=== PATIENT | female | born 1970 | race Hispanic/Latino ===

== ENCOUNTER 2024-04-19 22:33 | Emergency (ER) | payer OTHER, SELFPAY ==
--- OUTSIDE RECORDS SUMMARY | 2024-04-19 22:45 | XMS REPORT | Continuity of Care Document ---
Author Name Unknown Address [address] [facility] [address] [place] [address] [facility] Address [address] [facility] [address] [place] [address] Care Team Providers Care Ordnance Mechanic Name Role Phone ELENA PICKENS Primary Care Physician Unav ailable FELICITAS LINK Attending Clinician Unavailabl e [facility]WalkInSchedul Attending Clinician Unavail able PORSCHE ISBELL Attending Clinician Unavailable Porsche Isbell PA-C Attending Clinician [phone] Sosa Bledsoe MD Attending Clinician [phone] SOSA BLEDSOE Attending Clinician Unavailable Doctor Unassigned, [place] Attending Clinician U shanelleailFelicitas Andrew MD Attending Clinician [phone] Robert Lockhart Attending Clinician [phone], [employer] Attending Clinician Belkis Warren PhD, Marly Mercado Attending Clinician Clinic, Neurology Continuity Attending Clinician Unavailable Radiology Attending Clinician Unavailable RADIOLOGY Attending Clinician Unavailable WILLIAM LARSON Attending Clinician Unavail able MOMO LUNDY Attending Clinician Unavailable Provider, [facility] Attending Clinician Un available Becky Farias Attending Clinician [phone] [facility]_WalkInSchedul Admitting Clinician Unavail able Payers Payer Name Policy Type Policy Number Effective Date Expirati on Date Source [facility] [id number] 2017 00:00:00 [facility] (O) [id number] 2022 00:00:00 Problems Condition Name Condition Details Condition Category Status Onset Date Resolution Date Last Treatment Date Treating Clinician Comments Source Gastroesop hageal reflux disease without esophagiti s Gastroesop hageal Reflux Disease without Esophagiti s Problem Active 2022-07 00:00: 00 [facility] Urge incontinen ce of urine Urge Incontinen ce of Urine Problem Active 2022-07 00:00: 00 [facility] Cerebrovas cular disease Cerebrovas cular Disease Problem Active 02-24 00:00: 00 [facility] Hyperlipid emia Hyperlipid emia Problem Active 08-14 00:00: 00 [facility] Rheumatoid arthritis Rheumatoid Arthritis Problem Active 08-14 00:00: 00 [facility] No known active problems No known active problems Disease [facility] Allergies, Adverse Reactions, Alerts Allergy Name Allergy Type Status Severity Reaction(s) Onset Date Inactive Date Treating Clinician Comments Source NO KNOWN ALLERGIE S Drug Class Active [facility] Social History Social Habit Start Date Stop Date Quantity Comments Source Alcohol intake 2022-12-13 00:00:00 2022-12-13 00:00:00 Current non-drinker of alcohol (finding) [facility] Exposure to SARS-CoV-2 (event) 2022-09-26 00:00:00 2022-10-06 11:52:00 Not sure [facility] Tobacco use and exposure 2022-06-18 00:00:00 2022-06-18 00:00:00 Smokeless tobacco non-user [facility] Sex Assigned At 1970 00:00:00 1970 00:00:00 [facility] Smoking Status Start Date Stop Date Source Never smoked tobacco [facility] Medications Ordered Medication Name Filled Medication Name Start Date Stop Date Current Medication? Ordering Clinician Indication Dosage Frequency Signature (SIG) Comments Components Source atorvastati n 20 mg tablet 3- 12:13: 33 10-06 00:00 :00 No 40mg Take 40 mg by mouth at bedtime. [facility] apixaban 5 mg tablet 10-06 12:13: 31 Yes 5mg Take 1 tablet by mouth 2 (two) times daily. [facility] atorvastati n 40 mg tablet 08-19 00:00: 00 Yes 40mg Take 1 tablet by mouth daily. [facility] fluticasone propionate 50 mcg/actuati on nasal spray 08-11 00:00: 00 10-06 00:00 :00 No [id number] 1{spray } Use 1 Newfane in each nostril 2 (two) times daily. [facility] fluticasone propionate 50 mcg/actuati on nasal spray 08-10 00:00: 00 08-11 00:00 :00 No [id number] 1{spray } Use 1 Newfane in each nostril 2 (two) times daily. [facility] iopamidol (ISOVUE 370-500 mL) injection 100 mL 2021-07 20:15: 00 06-24 19:29 :00 No [id number] 100mL 100 mL, Intravenou s, ONCE, 1 dose, On Wed06/24/22 at 1415, Routine [facility] atorvastati n 20 mg tablet 2021-07 12:04: 35 Yes 40mg Take 40 mg by mouth at bedtime. [facility] methotrexat e 2.5 mg tablet 2021-07 12:04: 35 Yes 7.5mg Take 7.5 mg by mouth weekly. [facility] atorvastati n 20 mg tablet 10-26 16:14: 32 Yes 20mg Take 20 mg by mouth at bedtime. [facility] apixaban (ELIQUIS) 5 mg tablet 10-26 16:14: 32 Yes 5mg Take 5 mg by mouth 2 (two) times daily. [facility] methotrexat e 2.5 mg tablet 10-26 16:14: 32 Yes 7.5mg Take 7.5 mg by mouth weekly. [facility] omeprazole 40 mg capsule 10-26 16:14: 32 Yes 40mg Take 40 mg by mouth daily. [facility] atorvastati n 20 mg tablet 10-26 11:14: 32 Yes 20mg Take 20 mg by mouth at bedtime. [facility] apixaban (ELIQUIS) 5 mg tablet 10-26 11:14: 32 Yes 5mg Take 5 mg by mouth 2 (two) times daily. [facility] methotrexat e 2.5 mg tablet 10-26 11:14: 32 Yes 7.5mg Take 7.5 mg by mouth weekly. [facility] omeprazole 40 mg capsule 10-26 11:14: 32 Yes 40mg Take 40 mg by mouth daily. [facility] apixaban 5 mg tablet Take 1 tablet twice a day by oral route. apixaban 5 mg tablet Take 1 tablet twice a day by oral route. No 1 BID apixaban 5 mg tablet Take 1 tablet twice a day by oral route. [facility] atorvastati n 40 mg tablet Take 1 tablet every day by oral route at dinner. atorvastati n 40 mg tablet Take 1 tablet every day by oral route at dinner. No 1 Q1D atorvastat in 40 mg tablet Take 1 tablet every day by oral route at dinner. [facility] fenofibrate 160 mg tablet Take 1 tablet every day by oral route. fenofibrate 160 mg tablet Take 1 tablet every day by oral route. No 1 Q1D fenofibrat e 160 mg tablet Take 1 tablet every day by oral route. [facility] folic acid 1 mg tablet Take 1 tablet every day by oral route. folic acid 1 mg tablet Take 1 tablet every day by oral route. No 1 Q1D folic acid 1 mg tablet Take 1 tablet every day by oral route. [facility] omeprazole 40 mg capsule,del ayed release Take 1 capsule every day by oral route in the morning. omeprazole 40 mg capsule,del ayed release Take 1 capsule every day by oral route in the morning. No 1capsul e(s) Q1D omeprazole 40 mg capsule,de layed release Take 1 capsule every day by oral route in the morning. [facility] methotrexat e sodium 2.5 mg tablet Take 7 tablets every week by oral route. methotrexat e sodium 2.5 mg tablet Take 7 tablets every week by oral route. No 7 Q1W methotrexa te sodium 2.5 mg tablet Take 7 tablets every week by oral route. [facility] Immunizations Ordered Immunization Name Filled Immunization Name Date Status Comments Source SARS-COV-2 COVID-19 PFIZER VACCINE 2020-11-16 00:00:00 Completed [facility] SARS-COV-2 COVID-19 PFIZER VACCINE 2020-11-16 00:00:00 Completed [facility] SARS-COV-2 COVID-19 PFIZER VACCINE 2020-11-16 00:00:00 Completed [facility] SARS-COV-2 COVID-19 PFIZER VACCINE 2020-11-16 00:00:00 Completed [facility] SARS-COV-2 COVID-19 PFIZER VACCINE 2020-11-16 00:00:00 Completed [facility] SARS-COV-2 COVID-19 PFIZER VACCINE 2020-11-16 00:00:00 Completed [facility] SARS-COV-2 COVID-19 PFIZER VACCINE 2020-11-16 00:00:00 Completed [facility] SARS-COV-2 COVID-19 PFIZER VACCINE 2020-11-16 00:00:00 Completed [facility] SARS-COV-2 COVID-19 PFIZER VACCINE 2020-11-16 00:00:00 Completed [facility] SARS-COV-2 COVID-19 PFIZER VACCINE 2020-11-16 00:00:00 Completed [facility] SARS-COV-2 COVID-19 PFIZER VACCINE 2020-11-16 00:00:00 Completed [facility] SARS-COV-2 COVID-19 PFIZER VACCINE 2020-11-16 00:00:00 Completed [facility] SARS-COV-2 COVID-19 PFIZER VACCINE 2020-11-16 00:00:00 Completed [facility] SARS-COV-2 COVID-19 PFIZER VACCINE 2020-11-16 00:00:00 Completed [facility] SARS-COV-2 COVID-19 PFIZER VACCINE 2020-11-16 00:00:00 Completed [facility] SARS-COV-2 COVID-19 PFIZER VACCINE 2020-11-16 00:00:00 Completed [facility] SARS-COV-2 COVID-19 PFIZER VACCINE 2020-11-16 00:00:00 Completed [facility] SARS-COV-2 COVID-19 PFIZER VACCINE 2020-10-05 00:00:00 Completed [facility] SARS-COV-2 COVID-19 PFIZER VACCINE 2020-10-05 00:00:00 Completed [facility] SARS-COV-2 COVID-19 PFIZER VACCINE 2020-10-05 00:00:00 Completed [facility] SARS-COV-2 COVID-19 PFIZER VACCINE 2020-10-05 00:00:00 Completed [facility] SARS-COV-2 COVID-19 PFIZER VACCINE 2020-10-05 00:00:00 Completed [facility] SARS-COV-2 COVID-19 PFIZER VACCINE 2020-10-05 00:00:00 Completed [facility] SARS-COV-2 COVID-19 PFIZER VACCINE 2020-10-05 00:00:00 Completed [facility] SARS-COV-2 COVID-19 PFIZER VACCINE 2020-10-05 00:00:00 Completed [facility] SARS-COV-2 COVID-19 PFIZER VACCINE 2020-10-05 00:00:00 Completed [facility] SARS-COV-2 COVID-19 PFIZER VACCINE 2020-10-05 00:00:00 Completed [facility] SARS-COV-2 COVID-19 PFIZER VACCINE 2020-10-05 00:00:00 Completed [facility] SARS-COV-2 COVID-19 PFIZER VACCINE 2020-10-05 00:00:00 Completed [facility] SARS-COV-2 COVID-19 PFIZER VACCINE 2020-10-05 00:00:00 Completed [facility] SARS-COV-2 COVID-19 PFIZER VACCINE 2020-10-05 00:00:00 Completed [facility] SARS-COV-2 COVID-19 PFIZER VACCINE 2020-10-05 00:00:00 Completed [facility] SARS-COV-2 COVID-19 PFIZER VACCINE 2020-10-05 00:00:00 Completed [facility] SARS-COV-2 COVID-19 PFIZER VACCINE 2020-10-05 00:00:00 Completed [facility] SARS-COV-2 COVID-19 PFIZER VACCINE 2020-10-05 00:00:00 Completed [facility] influenza nasal, unspecified formulation influenza nasal, unspecified formulation Unknown Completed [facility] influenza, unspecified formulation influenza, unspecified formulation Unknown Completed [facility] COVID-19, mRNA, LNP-S, PF, 30 mcg/0.3 mL dose ([employer]) COVID-19, mRNA, LNP-S, PF, 30 mcg/0.3 mL dose ([employer]) Unknown Completed [facility] COVID-19, mRNA, LNP-S, PF, 30 mcg/0.3 mL dose ([employer]) COVID-19, mRNA, LNP-S, PF, 30 mcg/0.3 mL dose ([employer]) Unknown Completed [facility] tetanus toxoid, unspecified formulation tetanus toxoid, unspecified formulation Unknown Completed [facility] Vital Signs Vital Name Observation Time Observation Value Comments S ource BP Diastolic 2023-11-13 00:00:00 79 mm[Hg] [facility] BMI (Body Mass Index) 2023-11-13 00:00:00 30.2 kg/m2 [facility] Body Weight 2023-11-13 00:00:00 2644 [oz_av] [facility] BP Systolic 2023-11-13 00:00:00 129 mm[Hg] [facility] Height 2023-11-13 00:00:00 62 [in_i] [facility] BP Diastolic 2022-11-24 00:00:00 65 mm[Hg] [facility] Height 2022-11-24 00:00:00 62 [in_i] [facility] BMI (Body Mass Index) 2022-11-24 00:00:00 28.4 kg/m2 [facility] BP Systolic 2022-11-24 00:00:00 111 mm[Hg] [facility] Body Weight 2022-11-24 00:00:00 2482 [oz_av] [facility] Systolic blood pressure 2022-10-06 17:12:00 113 mm[Hg] [facility] Diastolic blood pressure 2022-10-06 17:12:00 67 mm[Hg] [facility] Heart rate 2022-10-06 17:12:00 62 /min Unive [facility] Body temperature 2022-10-06 17:12:00 36.39 Mony [facility] Body height 2022-10-06 17:12:00 154.9 cm [facility] Body weight 2022-10-06 17:12:00 71.079 kg [facility] BMI 2022-10-06 17:12:00 29.61 kg/m2 [facility] Oxygen saturation in Arterial blood by Pulse oximetry 2022-10-06 17:12:00 99 /min [facility] Body height 2022-09-21 15:57:00 154.9 cm [facility] Body weight 2022-09-21 15:57:00 71.442 kg [facility] BMI 2022-09-21 15:57:00 29.76 kg/m2 [facility] BP Diastolic 2022-08-14 00:00:00 62 mm[Hg] [facility] Height 2022-08-14 00:00:00 62 [in_i] [facility] BMI (Body Mass Index) 2022-08-14 00:00:00 28.9 kg/m2 [facility] BP Systolic 2022-08-14 00:00:00 115 mm[Hg] [facility] Body Weight 2022-08-14 00:00:00 2528 [oz_av] [facility] Systolic blood pressure 2022-06-18 18:04:00 106 mm[Hg] [facility] Diastolic blood pressure 2022-06-18 18:04:00 67 mm[Hg] [facility] Heart rate 2022-06-18 18:04:00 66 /min Unive [facility] Body height 2022-06-18 18:04:00 154.9 cm [facility] Body weight 2022-06-18 18:04:00 73.256 kg [facility] BMI 2022-06-18 18:04:00 30.52 kg/m2 [facility] Oxygen saturation in Arterial blood by Pulse oximetry 2022-06-18 18:04:00 98 /min [facility] Systolic blood pressure 2020-10-26 16:11:00 124 mm[Hg] [facility] Diastolic blood pressure 2020-10-26 16:11:00 81 mm[Hg] [facility] Heart rate 2020-10-26 16:11:00 94 /min [facility] Body temperature 2020-10-26 16:11:00 37.39 Mony [facility] Respiratory rate 2020-10-26 16:11:00 18 /min [facility] Body height 2020-10-26 16:11:00 157.5 cm [facility] Body weight 2020-10-26 16:11:00 72.179 kg [facility] BMI 2020-10-26 16:11:00 29.10 kg/m2 [facility] Oxygen saturation in Arterial blood by Pulse oximetry 2020-10-26 16:11:00 97 /min [facility] Procedures Procedure Date / Time Performed Performing Clinician Source EXTERNAL PROVIDER RECORDS 2022-10-01 05:01:00 Doctor Unassigned, [place] [facility] MR BRAIN WO CONTRAST 2022-06-24 20:49:49 Porsche Isbell [facility] MR VENOGRAM HEAD WO CONTRAST 2022-06-24 20:25:25 Porsche Isbell [facility] HB CREATININE SERUM/BLOOD FOR IMAGING 2022-06-24 19:59:00 Porsche Isbell [facility] CT ANGIOGRAM HEAD 2022-06-24 19:29:35 Porsche Isbell [facility] CT ANGIOGRAM NECK 2022-06-24 19:28[facility]30 [facility]ENEFITS 2022-06-24 18:39:06 Docto r Unassigned, [place] [facility] CONSENT/REFUSAL FOR DIAGNOSIS AND TREATMENT 2022-06-24 18:38:49 Doctor Unassigned, [place] [facility] REFERRAL- REQUEST/RESPONSE 2022-03-12 05:01:00 Doctor Unassigned, [place] [facility] BI SCREENING TOMOSYNTHESIS BILATERAL 2021-01-09 15:54:11 Requisition, Paper [facility] ASSIGNMENT OF BENEFITS 2021-01-09 15:06:32 Docto r Unassigned, [place] [facility] Plan of Care Planned Activity Planned Date Details Comments Source Diagnostic Test Pending 2023-11-13 00:00:00 CMP, serum or plasma [code = CMP, serum or plasma] [facility] Pending 2023-11-13 00:00:00 CBC w/ auto diff [code = CBC w/ auto diff] [facility] Test Pending 2023-11-13 00:00:00 urinalysis, complete [code = urinalysis, complete] [facility] Test Pending 2023-11-13 00:00:00 culture, urine [code = culture, urine] [facility] Diagnostic Test Pending 2023-11-13 00:00:00 HbA1c (hemoglobin A1c), blood [code = HbA1c (hemoglobin A1c), blood] [facility] Diagnostic Test Pending 2023-11-13 00:00:00 lipid panel, serum [code = lipid panel, serum] [facility] Encounters Start Date/Time End Date/Time Encounter Type Admission Type Attending Clinicians Care Facility Care Department Encounter ID Source 2023-11-13 00:00:00 2023-11-13 00:00:00 CARMELA Vargas: [address] [place] [id number] , Ph. [facility] - GC_CPC_Need denita Office [id number] [facility] 2023-03-29 11:00:00 2023-03-29 11:00:00 Outpatient R JOSE LINKO [facility] [id number] [facility] 2023-02-25 00:00:00 2023-02-25 00:00:00 Outpatient [facility]_Walk InSchedul [facility] [id number] [facility] 2023-02-24 00:00:00 2023-02-24 00:00:00 Outpatient [facility]_Walk InSchedul [facility] [id number] [facility] 2023-02-22 00:00:00 2023-02-22 00:00:00 Outpatient [facility]_Walk InSchedul [facility] [id number] [facility] 2022-11-24 00:00:00 2022-11-24 00:00:00 CARMELA Vargas: [address] [address] , Ph. [facility] - GC_CPC_Need [facility] Office [id number] [facility] 2022-10-26 10:00:00 2022-10-26 10:00:00 Outpatient R PORSCHE ISBELL [facility] [id number] [facility] 2022-10-23 00:00:00 2022-10-23 00:00:00 Telephone SukhiPorsche Ban [facility] [id number] 350.1.13.10 4.2.7.2.686 [id number] [facility] 2022-10-06 12:00:00 2022-10-06 12:45:00 Office Visit Rakan [facility] MED[facility] OFF[facility] BUILD[facility] 1.2.840.114 350.1.13.10 4.2.7.2.686 [id number] [facility] 2022-10-06 12:00:00 2022-10-06 12:00:00 Outpatient R RAKAN SABASHUA [facility] [id number] [facility] 2022-10-01 00:00:00 2022-10-01 00:00:00 Orders Only Doctor Unassigned, [place] [facility] 1.2.840.114 350.1.13.10 4.2.7.2.686 [id number] [facility] 2022-10-01 00:00:00 2022-10-01 00:00:00 Telephone Rakan [facility] OFF[facility] 1.2.840.114 350.1.13.10 4.2.7.2.686 [id number] [facility] 2022-09-21 10:00:00 2022-09-21 10:15:00 Office Visit Felicitas Link [facility] 1.2.840.114 350.1.13.10 4.2.7.2.686 [id number] [facility] 2022-09-21 10:00:00 2022-09-21 10:00:[id number] 2022-09-21 09:00:00 2022-09-21 09:45:00 Ancillary Visit Robert Gutiérrez 2, [employer] Marly Warren [facility] 1.2.840.114 350.1.13.10 4.2.7.2.686 [id number] [facility] 2022-08-18 00:00:00 2022-08-18 00:00:00 [facility] [id number] [facility] 2022-08-14 00:00:00 2022-08-14 00:00:00 [facility] [id number] [facility] 2022-08-14 00:00:00 2022-08-14 00:00:00 Artem Anderson, DIGITAL IMAGING SPECIALIST: [address] [address] , Ph. [facility] - GC_CPC_Need [facility] Office [id number] [facility] 2022-08-10 09:15:00 2022-08-10 09:30:00 Office Visit Felicitas Link [facility] 1.2.840.114 350.1.13.10 4.2.7.2.686 [id number] [facility] 2022-08-10 09:15:00 2022-08-10 09:15:00 Outpatient R FELICITAS LINK [facility] [id number] [facility] 2022-08-10 00:00:00 2022-08-10 00:00:00 Telephone Felicitas Link [facility] AASHISH TORO 1.2.840.114 350.1.13.10 4.2.7.2.686 [id number] [facility] 2022-06-24 12:42:24 2022-06-24 23:59:00 Hospital Encounter Porsche Isbell [facility] 1.2.840.114 350.1.13.10 4.2.7.2.686 [id number] [facility] 2022-06-24 12:42:02 2022-06-24 23:59:00 Hospital Encounter Porsche Isbell [facility] 1.2.840.114 350.1.13.10 4.2.7.2.686 [id number] [facility] 2022-06-24 12:41:45 2022-06-24 12:41:45 Outpatient R PORSCHE ISBELL [facility] [id number] [facility] 2022-06-24 12:41:45 2022-06-24 12:41:45 Hospital Encounter Porsche Isbell [facility] 1.2.840.114 350.1.13.10 4.2.7.2.686 [id number] [facility] 2022-06-24 12:41:31 2022-06-24 12:41:31 Hospital Encounter Porsche Isbell [facility] 1.2.840.114 350.1.13.10 4.2.7.2.686 [id number] [facility] 2022-06-18 12:00:00 2022-06-18 13:13:41 Outpatient R SOSA BLEDSOE [facility] [id number] [facility] 2022-06-18 12:00:00 2022-06-18 13:13:41 Office Visit Sosa Bledsoe [facility] 1.2.840.114 350.1.13.10 4.2.7.2.686 [id number] [facility] 2022-04-29 00:00:00 2022-04-29 00:00:00 Letter (Out) Clinic, Neurology Continuity [facility] 1.2.840.114 350.1.13.10 4.2.7.2.686 [id number] [facility] 2022-03-12 00:00:00 2022-03-12 00:00:00 Orders Only Doctor Unassigned, [place] [facility] 1.2.840.114 350.1.13.10 4.2.7.2.686 [id number] [facility] 2021-01-09 10:08:33 2021-01-09 23:59:00 Hospital Encounter Radiology [facility] 1.2.840.114 350.1.13.10 4.2.7.2.686 [id number] [facility] 2021-01-09 00:00:00 2021-01-09 00:00:00 Outpatient R RADIOLOGY [facility] [id number] [facility] 2021-01-09 00:00:00 2021-01-09 00:00:00 Orders Only Doctor Unassigned, [place] [facility] 1.2.840.114 350.1.13.10 4.2.7.2.686 [id number] [facility] 2020-11-16 09:55:00 2020-11-16 09:55:00 Outpatient R WILLIAM LARSON [facility] [id number] [facility] 2020-11-01 09:30:00 2020-11-01 09:30:00 Outpatient R MOMO LUNDY [facility] [id number] [facility] 2020-10-26 20:20:00 2020-10-26 20:20:00 Outpatient [facility] [id number] [facility] 2020-10-26 11:03:24 2020-10-26 11:56:17 Urgent Care Provider, [facility] 1.2.840.114 350.1.13.10 4.2.7.2.686 [id number] [facility] 2020-10-26 11:00:00 2020-10-26 11:00:00 Outpatient R [facility] [id number] [facility] 2020-10-05 19:15:00 2020-10-05 19:15:00 Outpatient R MOMO LUNDY [facility] [id number] [facility] Results Test Description Test Time Test Comments Results Result Co [facility] S[facility] [id number] 16:42:30Examination:BI SCREENING TOMOSYNTHESIS BILATERAL History:Patient is 50 year old and is seen for: ?Encounter for screening mammogram for breast cancer. Computer-aided detection (CAD) utilized. Comparisons : None available Findings:The breasts have scattered areas of fibroglandular density. There is no evidence of suspicious masses, calcifications, or other abnormal findings. Impression:No signs ofmalignancy. Recommendation:Annual mammographic follow-up - Bilateral BI[facility]RADS [facility]
[2024-04-19] MEDS ORDERED: NA CHLORIDE 0.9% 1,000 ML ONE (23:21)
[2024-04-19] MEDS ORDERED: KETOROLAC 30 MG/ML INJ ONE (23:21)
[2024-04-19] MEDS ORDERED: ONDANSETRON 4 MG/2 ML VIAL ONE (23:21)
[2024-04-19 23:22] LABS: Specific Gravity 1.013 (1.005-1.030); Sqamous Epithelial <5 /HPF (None Seen); Urine Bacteria None Seen /HPF (<20); Urine Bilirubin NEGATIVE (Negative); Urine Blood 3+ (OVER) (Negative); Urine Clarity Extremely Turbid (Clear); Urine Color Colorless (Yellow); Urine Crystals Unidentified Few /HPF (None Seen); Urine Culture Reflex Order NOT NEEDED; Urine Glucose NEGATIVE (Negative); Urine Ketones NEGATIVE (Negative); Urine Microscopic Reflex YN ORDER UMIC; Urine Mucus Slight /HPF (None Seen); Urine Nitrite NEGATIVE (Negative); Urine Protein TRACE (Negative); Urine RBC >50 /HPF (None Seen); Urine Urobilinogen Normal (Normal); Urine pH 6.5 (5.0-7.0)
[2024-04-19 23:23] LABS: Absolute Basophils 0.1 K/uL (0-0.5); Absolute Eosinophils 0.1 K/uL (0-0.5); Absolute Lymphocytes (CBC) 1.9 K/uL (0.7-4.9); Absolute Monocytes 0.6 K/uL (0.1-1.3); Eosinophils % 1.2 % (0-4.4); Hematocrit 38.6 % (36.0-45.0); Hemoglobin 12.7 g/dL (12.0-15.0); Lymphocytes % 24.5 % (15.3-44.8); MCV 100.1 fL (80-100); MPV 7.3 fL (7.6-11.3); Monocytes % 8.4 % (3.3-12.3); Neutrophils % 64.9 % (41.7-73.7); Platelets 340 thou/uL (152-406); RBC Red Blood Cell Count 3.86 M/uL (3.86-4.86); Red Cell Distribution Width 14.2 % (12.1-15.2)
[2024-04-19 23:59] LABS: ALT/SGPT 44 U/L (13-56); AST/SGOT 21 U/L (15-37); Alkaline Phosphatase 88 U/L (45-117); Anion Gap 8.5 mEq/L (5.0-15.0); BUN Blood Urea Nitrogen 15 mg/dL (7-18); Bicarbonate 24 mEq/L (21-32); Bilirubin Total 0.4 mg/dL (0.2-1.0); Glomerular Filtration Rate 92 ml/min (=/>90); Glucose Level 121 mg/dL (74-106); Lipase 26 U/L (13-75); Potassium 3.5 mEq/L (3.5-5.1); Protein, Total 7.1 g/dL (6.4-8.2); Sodium Level 139 mEq/L (136-145)
[2024-04-20] LABS: Albumin < 0.9 g/dL (3.4-5.0); Albumin/Globulin Ratio ND (1.1-1.8); Globulin 6.2 g/dL (2.3-3.5)
--- NOTE | 2024-04-20 01:31 | EDPHYS ---
Physician Documentation [facility] Name: Jenni Ludwig Age: 53 yrs Sex: Female : 1970 Arrival Date: 04/19/2024 Time: 22:33 Bed 13 Private MD: ED Physician Juan C Ogden HPI: 04/19 23:02 This 53 yrs old Female presents to ER via Ambulatory with complaints of Flank sb4 Pain, Nausea/Vomiting, Pain With Urination. 23:02 The patient complains of pain in the right low back. The pain radiates to the right sb4 lower quadrant. Onset: The symptoms/episode began/occurred today. Modifying factors: The symptoms are alleviated by nothing. the symptoms are aggravated by nothing. Associated signs and symptoms: Pertinent positives: dysuria, urinary frequency, hematuria, nausea, vomiting. The patient has not experienced similar symptoms in the past. The patient has not recently seen a physician. 04/20 00:36 right flank pain, abdominal bloating, urinary urgency x 2 days. has also vomited twice. sb4 denies any history of kidney stones or UTIs. no reported fevers. states urine looked blood tinged upon arrival. 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 - Infectious Disease History:: Denies. - Social history:: Smoking status: Patient denies any tobacco usage or history of. Patient/guardian denies using alcohol, street drugs. ROS: 23:02 Constitutional: Negative for fever, chills, and weight loss, sb4 23:02 Abdomen/GI: Positive for abdominal pain, nausea and vomiting, abdominal distension, 23:02 Back: Positive for flank pain, on the right, 23:02 : Positive for urinary symptoms, urgency, 23:02 All other systems are negative, Exam: 23:06 Head/Face: Normocephalic, atraumatic. Eyes: Extra-ocular motions intact. Periorbital sb4 areas with no swelling, redness, or edema. ENT: Mucous membranes moist. Cardiovascular: Regular rate and rhythm with a normal S1 and S2. Respiratory: Lungs have equal breath sounds bilaterally, clear to auscultation and percussion. No rales, rhonchi or wheezes noted. No increased work of breathing, no retractions or nasal flaring. Abdomen/GI: Soft, non-tender, no distension. Skin: Warm, dry with normal turgor. Normal color with no rashes, no lesions, and no evidence of cellulitis. 23:06 Constitutional: The patient appears alert, awake, obviously ill, uncomfortable, 23:06 Back: CVA tenderness, is noted on the right, Vital Signs: 22:46 BP 126 / 70; Pulse 77; Resp 17; Temp 98.5(O); Pulse Ox 98% on R/A; Weight 72.57 kg (R); lg3 Height 5 ft. 1 in. (R); Pain 10/10; / 01:29 BP 116 / 52; Pulse 76; Resp 16; Temp 97.9(O); Pulse Ox 98% on R/A; Pain 0/10; rg5 10/ 22:46 Body Mass Index 30.23 (72.57 kg, 154.94 cm) lg3 10 22:46 Pain Scale: Adult lg3 04/20 01:29 Pain Scale: Adult rg5 Laron Coma Score: 04/19 23:00 Eye Response: spontaneous(4). Motor Response: obeys commands(6). Verbal Response: rg5 oriented(5). Total: 15. MDM: 22:49 Patient medically screened. sb4 04/20 01:11 Data reviewed: vital signs, nurses notes, lab test result(s), radiologic studies, I sb4 have discussed the patient's presentation/case with the attending Emergency Department Physician; and as a result, I will discharge patient. Historians other than the Patient: Daughter/Son: daughter. Counseling: I had a detailed discussion with the patient and/or guardian regarding the historical points, exam findings, and any diagnostic results supporting the discharge/admit diagnosis, lab results, radiology results, the need for outpatient follow up, a urologist, to return to the emergency department if symptoms worsen or persist or if there are any questions or concerns that arise at home. 04/19 23:01 Order name: CBC with Diff; Complete Time: 23:27 sb4 04/19 23:01 Order name: CMP; Complete Time: 00:02 sb4 04/19 23:01 Order name: Lipase; Complete Time: 00:02 sb4 04/19 23:01 Order name: Urinalysis w/ reflexes; Complete Time: 23:23 sb4 04/19 23:01 Order name: CT Abd/Pelvis - IV Contrast Only sb4 04/19 23:01 Order name: IV Saline Lock; Complete Time: 23:10 sb4 04/19 23:01 Order name: Labs collected and sent; Complete Time: 23:10 sb4 Administered Medications: 04/19 23:27 Drug: NS 0.9% IV 1000 ml IV at 1 bolus Per protocol; 1000 mL bolus Route: IV; Rate: 1 rg5 bolus; Site: right antecubital; 04/20 01:34 Follow up: IV Status: Completed infusion; IV Intake: 1000ml rg5 04/19 23:27 Drug: Ondansetron IVP 4 mg IVP once; over 2 minutes Route: IVP; Site: right antecubital;rg5 04/20 01:34 Follow up: Response: No adverse reaction rg5 04/19 23:28 Drug: TORadol - Ketorolac IVP 15 mg IVP once Route: IVP; Site: right antecubital; rg5 04/20 01:34 Follow up: Response: No adverse reaction; Pain is decreased rg5 Disposition: 01:30 Co-signature as Attending Physician, Juan C Ogden MD. I agree with the assessment and sp3 plan of care. I reviewed the patient's care provided by Advanced Practice Provider \T\ agree w/ the diagnosis \T\ care plan. I personally saw the pt \T\ performed a substantive portion of the visit, incldng all aspects of the (History/Exam/Medical Decision Making). 13:23 Chart complete. sb4 Disposition Summary: 04/20/24 01:30 Discharge Ordered Notes: Location: Home sp3 Problem: new sp3 Symptoms: have improved sp3 Condition: Stable sp3 Diagnosis - Urinary calculus, unspecified sp3 Followup: sb4 - With: Private Physician - When: 1 week - Reason: Recheck today's complaints, Re-evaluation by your physician Discharge Instructions: - Discharge Summary Sheet sb4 - Kidney Stones sb4 - Low-Purine Eating Plan sb4 Forms: - Medication Reconciliation Form sp3 - Antibiotic Education sp3 - Prescription Opioid Use sp3 - Patient Portal Instructions sp3 - Leadership Thank You Letter sp3 Prescriptions: - Flomax 0.4 mg Oral capsule - take 1 capsule ORAL route every 24 hours; 5 capsule; Refills: 0, Product sp3 Selection Permitted - Tramadol 50 mg Oral Tablet - take 1 tablet ORAL route every 8 hours as needed; 12 tablet; Refills: 0, sp3 Product Selection Permitted Signatures: Dispatcher [employer] Jyoti Ruiz, RN RN lg3 Juan C Ogden MD MD sp3 Vivian Gordillo PAKhadar PAKhadar sb4 Ivan Lam RN RN rg5
--- NOTE | 2024-04-20 01:31 | ER ---
Nurse's Notes [facility] Name: Jenni Ludwig Age: 53 yrs Sex: Female : 1970 Arrival Date: 04/19/2024 Time: 22:33 Bed 13 Private MD: Diagnosis: Urinary calculus, unspecified Presentation: 04/19 22:46 Chief complaint: Patient states: right sided flank pain, vomiting, bloating, blood lg3 streaked urine beginning this morning. Coronavirus screen: Client denies travel out of the [place] in the last 14 days. At this time, the client does not indicate any symptoms associated with coronavirus-19. Ebola Screen: No symptoms or risks identified at this time. Initial Sepsis Screen: Does the patient meet any 2 criteria? No. Patient's initial sepsis screen is negative. Does the patient have a suspected source of infection? No. Patient's initial sepsis screen is negative. Risk Assessment: Do you want to hurt yourself or someone else? Patient reports no desire to harm self or others. Onset of symptoms was April 19, 2024. 22:46 Method Of Arrival: Ambulatory lg3 22:46 Acuity: SHAHEEN 3 lg3 Triage Assessment: 22:48 General: Appears in no apparent distress. uncomfortable, Behavior is calm, cooperative. lg3 Pain: Complains of pain in right flank. EENT: No deficits noted. No signs and/or symptoms were reported regarding the EENT system. Neuro: No deficits noted. Wooten Agitation-Sedation Scale (RASS): 0 - Alert and Calm Level of Consciousness is awake, alert, obeys commands, Oriented to person, place, time, situation. Cardiovascular: No deficits noted. Denies chest pain, shortness of breath, Capillary refill < 3 seconds Clubbing of nail beds is absent JVD is absent Patient's skin is warm and dry. Respiratory: No deficits noted. Airway is patent Respiratory effort is even, unlabored, Respiratory pattern is regular, symmetrical. GI: Reports nausea, vomiting. : Reports burning with urination, cramping, urgency, urinary frequency. Derm: No deficits noted. No signs and/or symptoms reported regarding the dermatologic system. Skin is intact, is healthy with good turgor, Skin is dry, Skin is normal, Skin temperature is warm. Musculoskeletal: No deficits noted. Circulation, motion, and sensation intact. Range of motion: intact in all extremities. 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 - Infectious Disease History:: Denies. - Social history:: Smoking status: Patient denies any tobacco usage or history of. Patient/guardian denies using alcohol, street drugs. Screenin:00 [facility] ED Fall Risk Assessment (Adult) History of falling in the last 3 months, rg5 including since admission No falls in past 3 months (0 pts) Confusion or Disorientation No (0 pts) Intoxicated or Sedated No (0 pts) Impaired Gait No (0 pts) Mobility Assist Device Used No (0 pt) Altered Elimination No (0 pt) Score/Fall Risk Level 0 - 2 = Low Risk Oriented to surroundings, Maintained a safe environment, Hourly rounding (assess needs \T\ fall precautionary measures) done. Abuse screen: Denies threats or abuse. Nutritional screening: No deficits noted. Tuberculosis screening: No symptoms or risk factors identified. Assessment: 23:00 Reassessment: Patient and/or family updated on plan of care and expected duration. Pain rg5 level reassessed. Patient is alert, oriented x 3, equal unlabored respirations, skin warm/dry/pink. 23:00 General: Appears in no apparent distress. Behavior is calm, cooperative. Pain: rg5 Complains of pain in back. Neuro: Level of Consciousness is awake, Oriented to person, place. Cardiovascular: Heart tones S1 S2 Patient's skin is warm and dry. Respiratory: Airway is patent Trachea midline Respiratory effort is even, unlabored, Respiratory pattern is regular. GI: Abdomen is round non-distended. : No signs and/or symptoms were reported regarding the genitourinary system. EENT: No deficits noted. Derm: Skin is intact, Skin is dry, Skin is normal. Musculoskeletal: Circulation, motion, and sensation intact. Range of motion: intact in all extremities. 04/20 00:00 Reassessment: Patient and/or family updated on plan of care and expected duration. Pain rg5 level reassessed. Patient is alert, oriented x 3, equal unlabored respirations, skin warm/dry/pink. 01:32 Reassessment: Patient and/or family updated on plan of care and expected duration. Pain rg5 level reassessed. Patient is alert, oriented x 3, equal unlabored respirations, skin warm/dry/pink. Patient states feeling better. Patient states symptoms have improved. Vital Signs: 04/19 22:46 BP 126 / 70; Pulse 77; Resp 17; Temp 98.5(O); Pulse Ox 98% on R/A; Weight 72.57 kg (R); lg3 Height 5 ft. 1 in. (R); Pain 10/10; 04/20 01:29 BP 116 / 52; Pulse 76; Resp 16; Temp 97.9(O); Pulse Ox 98% on R/A; Pain 0/10; rg5 04/19 22:46 Body Mass Index 30.23 (72.57 kg, 154.94 cm) lg3 04/19 22:46 Pain Scale: Adult lg3 04/20 01:29 Pain Scale: Adult rg5 Laron Coma Score: 04/19 23:00 Eye Response: spontaneous(4). Motor Response: obeys commands(6). Verbal Response: rg5 oriented(5). Total: 15. ED Course: 22:38 Patient arrived in ED. gm2 22:40 Vivian Gordillo PA-C is PHCP. sb4 22:40 Juan C Ogden MD is Attending Physician. sb4 22:48 Triage completed. lg3 22:48 Arm band placed on left wrist. lg3 23:00 Ivan Lam, WOODY is Primary Nurse. rg5 23:00 Patient has correct armband on for positive identification. Bed in low position. Call rg5 light in reach. Side rails up X 1. 23:00 No provider procedures requiring assistance completed. Inserted saline lock: 20 gauge rg5 in right antecubital area, using aseptic technique. Blood collected. Flushed with 10 mL NS. Patient maintains SpO2 saturation greater than 95% on room air. 04/20 00:41 CT Abd/Pelvis - IV Contrast Only In Process Unspecified. EDMS 01:54 Provided Education on: post er care. rg5 01:54 IV discontinued. rg5 Administered Medications: 04/19 23:27 Drug: NS 0.9% IV 1000 ml IV at 1 bolus Per protocol; 1000 mL bolus Route: IV; Rate: 1 rg5 bolus; Site: right antecubital; 04/20 01:34 Follow up: IV Status: Completed infusion; IV Intake: 1000ml rg5 04/19 23:27 Drug: Ondansetron IVP 4 mg IVP once; over 2 minutes Route: IVP; Site: right antecubital;rg5 04/20 01:34 Follow up: Response: No adverse reaction rg5 04/19 23:28 Drug: TORadol - Ketorolac IVP 15 mg IVP once Route: IVP; Site: right antecubital; rg5 04/20 01:34 Follow up: Response: No adverse reaction; Pain is decreased rg5 Medication: 04/19 23:00 VIS not applicable for this client. rg5 Intake: 04/20 01:34 IV: 1000ml; Total: 1000ml. rg5 Outcome: 01:30 Discharge ordered by . sp3 01:54 Discharged to home via ambulance, rg5 01:54 Condition: stable 01:54 Discharge instructions given to patient, family, Instructed on discharge instructions, follow up and referral plans. Demonstrated understanding of instructions, follow-up care, medications, Prescriptions given X 2, 01:55 Patient left the ED. rg5 Signatures: Dispatcher [employer] EDMS Jyoti Tidwell, RN RN lg3 Juan C Ogden MD MD sp3 Vivian Gordillo, PA-C PA-C [email or web address] Brooklyn Burgess gm2 Ivan Lam, WOODY RN rg5 Corrections: (The following items were deleted from the chart) 04/19 22:54 22:46 BP 136 / ???; Pulse 77bpm; Resp 17bpm; Pulse Ox 98% RA; Temp 98.5F Oral; 72.57 kg lg3 Reported; Height 5 ft. 1 in. Reported; BMI: 30.2; Pain 04/27, Adult; lg3 04/20 01:33 01:33 Reassessment: Patient and/or family updated on plan of care and expected rg5 duration. Pain level reassessed. Patient is alert, oriented x 3, equal unlabored respirations, skin warm/dry/pink. rg5
--- NOTE | 2024-04-20 01:35 | RAD REPORT ---
Clinical Indication: IV ONLY Bed Name: 13. Comparison: None. TECHNIQUE: Helical imaging was performed from diaphragm through the pelvis after IV contrast administ ration with multiplanar reformations obtained. Coronal and sagittal reformats were performed and provided as separate series. IV CONTRAST: IV contrast dose was not provided GI CONTRAST: GI contrast was not administered CT Radiation Dose: DLP = 964.4 mGy-cm All CT scans at this location are performed using dose optimization techniques as appropriate to perf orm the study. Radiation dose reduction technique was utilized including one or more of the following: Automated exp osure control, adjustment of the mA and/or kV according to patient size and use of iterative reconstruction technique. FINDINGS: LOWER CHEST: The visualized lung bases are clear. LIVER: The liver is hypodense, consistent with fatty infiltration. GALLBLADDER: Unremarkable. INTRAHEPATIC BILE DUCT AND EXTRAHEPATIC BILE DUCT: Unremarkable. PANCREAS: Unremarkable. SPLEEN: Unremarkable. ADRENALS: Unremarkable. KIDNEYS AND URETERS: The renal contours are normal. There is no hydronephrosis. No surrounding fa t stranding is noted. The left kidney is unremarkable. Prominence of the right urothelium is noted. There is mild right hydroureter. There is a 5 mm stone i n the distal right ureter. This is located at the ureterovesical junction and can be seen on image 82 of series 201. STOMACH: Evaluation of the stomach and bowel is limited due to lack of oral contrast. No gross abno rmalities of the stomach are noted. BOWEL: The small bowel loops in the abdomen and pelvis appear unremarkable. The colonic loops in the abdomen and pelvis appear unremarkable. APPENDIX: The appendix is normal in caliber without surrounding inflammatory changes. PERITONEUM AND RETROPERITONEUM: No ascites or free air. No loculated fluid collection is noted. The re is no aortic aneurysm or dissection. PELVIS: The uterus and adnexa are unremarkable. BLADDER: Unremarkable LYMPH NODES: Unremarkable. OSSEOUS STRUCTURES: No acute abnormality seen. Bilateral pars defect is noted at L5. There is grade 1 anterolisthesis of L5 on S1 of approximately 6 mm. SOFT TISSUES: Unremarkable. IMPRESSION: 1. Mild right hydroureter due to distal 5 mm ureteral stone. This stone is located at the ureterovesi moises junction. 2. Bilateral pars defect with grade 1 anterolisthesis of L5 on S1 of approximately 6 mm. Electronically signed by: Jason Navarrete MD 04/20/2024 01:26 AM CDT RP Due to temporary technical issues with the PACS/[employer] reporting system, reports are being liza d by the in-house radiologist without review as a courtesy to ensure prompt reporting the interpreting radiologist is fully responsible for the content of the report. Transcribed Date/Time: 04/20/2024 1:35 AM
[2024-04-20 18:32] VITALS: O2SAT 98
[2024-04-20 18:33] VITALS: BP 116/52; TEMP 97.9
== END 2024-04-20 01:55 | disposition home or self-care (01) ==
LOC: ER 22:33
DX: N20.9 Urinary calculus, unspecified (principal)
CPT/HCPCS: 36415; 74177; 80053; 81001; 83690; 85025; 96361; 96374; 96375; 99284; J2405; J7030; Q9967

== ENCOUNTER 2024-09-04 20:50 | Emergency (ER) | payer OTHER ==
--- OUTSIDE RECORDS SUMMARY | 2024-09-04 20:54 | XMS REPORT | Continuity of Care Document ---
Author Name Unknown Address [address] [facility]. [address] [place] [address] [facility] thconnect Address [address] [facility] [address] [place] [address] Care Team Providers Care Bulk Mail Technician Name Role Phone ELENA PICKENS Primary Care Physician Unav ailFELICITAS Suárez Attending Clinician Unavailabl e GC_CPC_WalkInSchedul Attending Clinician Unavail able PORSCHE ISBELL Attending Clinician Unavailable Porsche Isbell PA-C Attending Clinician [phone] Sosa Bledsoe MD Attending Clinician [phone] SOSA BLEDSOE Attending Clinician Unavailable Doctor Unassigned, Higginson Attending Clinician U Felicitas Caldera MD Attending Clinician [phone] Robert Lockhart Attending Clinician [phone], [employer] Attending Clinician Belkis akbar Warren PhD, Marly Mercado Attending Clinician Clinic, Neurology Continuity Attending Clinician Unavailable Radiology Attending Clinician Unavailable RADIOLOGY Attending Clinician Unavailable WILLIAM LARSON Attending Clinician Unavail able MOMO LUNDY Attending Clinician Unavailable Provider, [facility] Attending Clinician Un available Becky Farias Attending Clinician [phone] GC_CPC_WalkInSchedul Admitting Clinician Unavail able Payers Payer Name Policy Type Policy Number Effective Date Expirati on Date Source [facility] [id number] 2017 00:00:00 FORMERLY [facility] Xyo (O) [id number] 2022 00:00:00 Problems Condition Name Condition Details [...] active problems No known active problems Disease [facility] Allergies, Adverse Reactions, Alerts Allergy Name Allergy Type Status Severity Reaction(s) Onset Date Inactive Date Treating Clinician Comments Source NO KNOWN ALLERGIE S Drug Class Active [facility] Social History Social Habit Start Date Stop Date Quantity Comments Source Alcohol intake 2022-12-13 00:00:00 2022-12-13 00:00:00 Current non-drinker of alcohol (finding) [facility] Exposure to SARS-CoV-2 (event) 2022-09-26 00:00:00 2022-10-06 11:52:00 Not sure [facility] Tobacco use and exposure 2022-06-18 00:00:00 2022-06-18 00:00:00 Smokeless tobacco non-user [facility] Sex Assigned At 1970 00:00:00 1970 00:00:00 [facility] Smoking Status Start Date Stop Date Source Never smoked tobacco [facility] Medications Ordered Medication Name Filled Medication Name Start Date Stop Date Current Medication? Ordering Clinician Indication Dosage Frequency Signature (SIG) Comments Components Source atorvastati n 20 mg tablet 3- 12:13: 33 10-06 00:00 :00 No 40mg Take 40 mg by mouth at bedtime. [facility] apixaban 5 mg tablet 10-06 12:13: 31 Yes 5mg Take 1 tablet by mouth 2 (two) times daily. [facility] atorvastati n 40 mg tablet 08-19 00:00: 00 Yes 40mg Take 1 tablet by mouth daily. [facility] fluticasone propionate 50 mcg/actuati on nasal spray 08-11 00:00: 00 10-06 00:00 :00 No [id number] 1{spray } Use 1 [place] in each nostril 2 (two) times daily. [facility] fluticasone propionate 50 mcg/actuati on nasal spray 08-10 00:00: 00 08-11 00:00 :00 No [id number] 1{spray } Use 1 [place] in each nostril 2 (two) times daily. [facility] iopamidol (ISOVUE 370-500 mL) injection 100 mL 2021-07 20:15: 00 06-24 19:29 :00 No [id number] 100mL 100 mL, Intravenou s, ONCE, 1 dose, On Wed06/24/22 at 1415, Routine [facility] atorvastati n 20 mg tablet 2021-07 12:04: 35 Yes 40mg Take 40 mg by mouth at bedtime. [facility] methotrexat e 2.5 mg tablet 2021-07 12:04: 35 Yes 7.5mg Take 7.5 mg by mouth weekly. [facility] atorvastati n 20 mg tablet 10-26 16:14: 32 Yes 20mg Take 20 mg by mouth at bedtime. [facility] apixaban (ELIQUIS) 5 mg tablet 10-26 16:14: 32 Yes 5mg Take 5 mg by mouth 2 (two) times daily. [facility] methotrexat e 2.5 mg tablet 10-26 16:14: 32 Yes 7.5mg Take 7.5 mg by mouth weekly. [facility] omeprazole 40 mg capsule 10-26 16:14: 32 Yes 40mg Take 40 mg by mouth daily. [facility] atorvastati n 20 mg tablet 10-26 11:14: 32 Yes 20mg Take 20 mg by mouth at bedtime. [facility] apixaban (ELIQUIS) 5 mg tablet 10-26 11:14: 32 Yes 5mg Take 5 mg by mouth 2 (two) times daily. [facility] methotrexat e 2.5 mg tablet 10-26 11:14: 32 Yes 7.5mg Take 7.5 mg by mouth weekly. [facility] omeprazole 40 mg capsule 10-26 11:14: 32 Yes 40mg Take 40 mg by mouth daily. [facility] apixaban 5 mg tablet Take 1 tablet twice a day by oral route. apixaban 5 mg tablet Take 1 tablet twice a day by oral route. No 1 BID apixaban 5 mg tablet Take 1 tablet twice a day by oral route. [facility] atorvastati n 40 mg tablet Take 1 tablet every day by oral route at dinner. atorvastati n 40 mg tablet Take 1 tablet every day by oral route at dinner. No 1 Q1D atorvastat in 40 mg tablet Take 1 tablet every day by oral route at dinner. [facility] fenofibrate 160 mg tablet Take 1 tablet every day by oral route. fenofibrate 160 mg tablet Take 1 tablet every day by oral route. No 1 Q1D fenofibrat e 160 mg tablet Take 1 tablet every day by oral route. [facility] folic acid 1 mg tablet Take 1 tablet every day by oral route. folic acid 1 mg tablet Take 1 tablet every day by oral route. No 1 Q1D folic acid 1 mg tablet Take 1 tablet every day by oral route. [facility] omeprazole 40 mg capsule,del ayed [...] 7 tablets every week by oral route. [facility] Immunizations Ordered Immunization Name Filled Immunization Name Date Status Comments Source SARS-COV-2 COVID-19 PFIZER VACCINE 2020-11-16 00:00:00 Completed [facility] SARS-COV-2 COVID-19 PFIZER VACCINE 2020-11-16 00:00:00 Completed [facility] SARS-COV-2 COVID-19 PFIZER VACCINE 2020-11-16 00:00:00 Completed [facility] SARS-COV-2 COVID-19 PFIZER VACCINE 2020-11-16 00:00:00 Completed [facility] SARS-COV-2 COVID-19 PFIZER VACCINE 2020-11-16 00:00:00 Completed [facility] SARS-COV-2 COVID-19 PFIZER VACCINE 2020-11-16 00:00:00 Completed [facility] SARS-COV-2 COVID-19 PFIZER VACCINE 2020-11-16 00:00:00 Completed [facility] SARS-COV-2 COVID-19 PFIZER VACCINE 2020-11-16 00:00:00 Completed [facility] SARS-COV-2 COVID-19 PFIZER VACCINE 2020-11-16 00:00:00 Completed [facility] SARS-COV-2 COVID-19 PFIZER VACCINE 2020-11-16 00:00:00 Completed [facility] SARS-COV-2 COVID-19 PFIZER VACCINE 2020-11-16 00:00:00 Completed [facility] SARS-COV-2 COVID-19 PFIZER VACCINE 2020-11-16 00:00:00 Completed [facility] SARS-COV-2 COVID-19 PFIZER VACCINE 2020-11-16 00:00:00 Completed [facility] SARS-COV-2 COVID-19 PFIZER VACCINE 2020-11-16 00:00:00 Completed [facility] SARS-COV-2 COVID-19 PFIZER VACCINE 2020-11-16 00:00:00 Completed [facility] SARS-COV-2 COVID-19 PFIZER VACCINE 2020-11-16 00:00:00 Completed [facility] SARS-COV-2 COVID-19 PFIZER VACCINE 2020-11-16 00:00:00 Completed [facility] SARS-COV-2 COVID-19 PFIZER VACCINE 2020-10-05 00:00:00 Completed [facility] SARS-COV-2 COVID-19 PFIZER VACCINE 2020-10-05 00:00:00 Completed [facility] SARS-COV-2 COVID-19 PFIZER VACCINE 2020-10-05 00:00:00 Completed [facility] SARS-COV-2 COVID-19 PFIZER VACCINE 2020-10-05 00:00:00 Completed [facility] SARS-COV-2 COVID-19 PFIZER VACCINE 2020-10-05 00:00:00 Completed [facility] SARS-COV-2 COVID-19 PFIZER VACCINE 2020-10-05 00:00:00 Completed [facility] SARS-COV-2 COVID-19 PFIZER VACCINE 2020-10-05 00:00:00 Completed [facility] SARS-COV-2 COVID-19 PFIZER VACCINE 2020-10-05 00:00:00 Completed [facility] SARS-COV-2 COVID-19 PFIZER VACCINE 2020-10-05 00:00:00 Completed [facility] SARS-COV-2 COVID-19 PFIZER VACCINE 2020-10-05 00:00:00 Completed [facility] SARS-COV-2 COVID-19 PFIZER VACCINE 2020-10-05 00:00:00 Completed [facility] SARS-COV-2 COVID-19 PFIZER VACCINE 2020-10-05 00:00:00 Completed [facility] SARS-COV-2 COVID-19 PFIZER VACCINE 2020-10-05 00:00:00 Completed [facility] SARS-COV-2 COVID-19 PFIZER VACCINE 2020-10-05 00:00:00 Completed [facility] SARS-COV-2 COVID-19 PFIZER VACCINE 2020-10-05 00:00:00 Completed [facility] SARS-COV-2 COVID-19 PFIZER VACCINE 2020-10-05 00:00:00 Completed [facility] SARS-COV-2 COVID-19 PFIZER VACCINE 2020-10-05 00:00:00 Completed [facility] SARS-COV-2 COVID-19 PFIZER VACCINE 2020-10-05 00:00:00 Completed [facility] influenza nasal, unspecified formulation influenza nasal, unspecified formulation Unknown Completed [facility] influenza, unspecified formulation influenza, unspecified formulation Unknown Completed [facility] COVID-19, mRNA, LNP-S, PF, 30 mcg/0.3 mL dose ([employer]) COVID-19, mRNA, LNP-S, PF, 30 mcg/0.3 mL dose ([employer]) Unknown Completed [facility] tetanus toxoid, unspecified formulation tetanus toxoid, unspecified formulation Unknown Completed [facility] Vital Signs Vital Name Observation Time Observation Value Comments S ource Height 2024-05-20 00:00:00 62 [in_i] [facility] Body Weight 2024-05-20 00:00:00 2736 [oz_av] [facility] BP Systolic 2024-05-20 00:00:00 130 mm[Hg] [facility] BMI (Body Mass Index) 2024-05-20 00:00:00 31.3 kg/m2 [facility] BP Diastolic 2024-05-20 00:00:00 81 mm[Hg] [facility] BP Diastolic 2023-11-13 00:00:00 79 mm[Hg] Kar[facility] [...] Systolic blood pressure 2022-10-06 17:12:00 113 mm[Hg] [facility] Diastolic blood pressure 2022-10-06 17:12:00 67 mm[Hg] [facility] Heart rate 2022-10-06 17:12:00 62 /[facility] 2022-10-06 17:12:00 36.39 Mony [facility] Body height 2022-10-06 17:12:00 154.9 cm [facility] Body weight 2022-10-06 17:12:00 71.079 kg [facility] BMI 2022-10-06 17:12:00 29.61 kg/m2 [facility] Oxygen saturation in Arterial blood by Pulse oximetry 2022-10-06 17:12:00 99 /min [facility] Body height 2022-09-21 15:57:00 154.9 cm [facility] Body weight 2022-09-21 15:57:00 71.442 kg [facility] BMI 2022-09-21 15:57:00 29.76 kg/m2 [facility] BP Diastolic 2022-08-14 00:00:00 62 mm[Hg] [facility] Height 2022-08-14 00:00:00 62 [in_i] [facility] BMI (Body Mass Index) 2022-08-14 00:00:00 28.9 kg/m2 [facility] BP Systolic 2022-08-14 00:00:00 115 mm[Hg] [facility] Body Weight 2022-08-14 00:00:00 2528 [oz_av] [facility] Systolic blood pressure 2022-06-18 18:04:00 106 mm[Hg] [facility] Diastolic blood pressure 2022-06-18 18:04:00 67 mm[Hg] [facility] Heart rate 2022-06-18 18:04:00 66 /min [facility] Body height 2022-06-18 18:04:00 154.9 cm [facility] Body weight 2022-06-18 18:04:00 73.256 kg [facility] BMI 2022-06-18 18:04:00 30.52 kg/m2 [facility] Oxygen saturation in Arterial blood by Pulse oximetry 2022-06-18 18:04:00 98 /min [facility] Systolic blood pressure 2020-10-26 16:11:00 124 mm[Hg] [facility] Diastolic blood pressure 2020-10-26 16:11:00 81 mm[Hg] [facility] Heart rate 2020-10-26 16:11:00 94 /min [facility] Body temperature 2020-10-26 16:11:00 37.39 Mony [facility] Respiratory rate 2020-10-26 16:11:00 18 /min [facility] Body height 2020-10-26 16:11:00 157.5 cm [facility] Body weight 2020-10-26 16:11:00 72.179 kg [facility] BMI 2020-10-26 16:11:00 29.10 kg/m2 [facility] Oxygen saturation in Arterial blood by Pulse oximetry 2020-10-26 16:11:00 97 /min [facility] Procedures Procedure Date / Time Performed Performing Clinician Source SCREENING MAMMOGRAPHY BI 2-VIEW BREAST INC CAD 2024-05-20 00:00:00 [facility] EXTERNAL PROVIDER RECORDS 2022-10-01 05:01:00 Doctor Unassigned, Higginson [facility] MR BRAIN WO CONTRAST 2022-06-24 20:49:49 Porsche Isbell [facility] MR VENOGRAM HEAD WO CONTRAST 2022-06-24 20:25:25 Porsche Isbell [facility] HB CREATININE SERUM/BLOOD FOR IMAGING 2022-06-24 19:59:00 Porsche Isbell [facility] CT ANGIOGRAM HEAD 2022-06-24 19:29:35 Porsche Isbell [facility] CT ANGIOGRAM NECK 2022-06-24 19:28:30 Senegalese, Porsche R U [facility] ASSIGNMENT OF BENEFITS 2022-06-24 18:39:06 Docmyah r Unassigned, Higginson [facility] CONSENT/REFUSAL FOR DIAGNOSIS AND TREATMENT 2022-06-24 18:38:49 Doctor Unassigned, Higginson [facility] REFERRAL- REQUEST/RESPONSE 2022-03-12 05:01:00 Doctor Unassigned, Higginson [facility] BI SCREENING TOMOSYNTHESIS BILATERAL 2021-01-09 15:54:11 Requisition, Paper [facility] ASSIGNMENT OF BENEFITS 2021-01-09 15:06:32 Docmyah r Unassigned, Higginson [facility] Encounters Start Date/Time End Date/Time Encounter Type Admission Type Attending Clinicians Care Facility Care Department Encounter ID Source 2024-05-20 00:00:00 2024-05-20 00:00:00 Thuy Cornelius RUNNING SPECIALIST: [id number] [id number] , Ph. [facility] - GC_CPC_Need denita Office [id number] [facility] 2023-11-13 00:00:00 2023-11-13 00:00:00 Bri Bruce PA: [id number] [place] [phone] , Ph. [facility] - GC_CPC_Need denita Office [id number] [facility] 2023-03-29 11:00:00 2023-03-29 11:00:00 Outpatient R FELICITAS LINK [facility] [id number] [facility] 2023-02-25 00:00:00 2023-02-25 00:00:00 Outpatient [facility]CPC_Walk InSchedul [facility] [id number] [facility] 2023-02-24 00:00:00 2023-02-24 00:00:00 Outpatient [facility]_Walk InSchedul [facility] [id number] [facility] 2023-02-22 00:00:00 2023-02-22 00:00:00 [facility] [id number] [facility] 2022-11-24 00:00:00 2022-11-24 00:00:00 CARMELA Vargas: [address] [phone] , Ph. [facility] - GC[facility]CPC_Need [facility] Office [id number] [facility] 2022-10-26 10:00:00 2022-10-26 10:00:00 Outpatient R PORSCHE ISBELL [facility] [id number] [facility] 2022-10-23 00:00:00 2022-10-23 00:00:00 Telephone Porsche Isbell [facility] 1.2.840.114 350.1.13.10 4.2.7.2.686 [id number] [facility] 2022-10-06 12:00:00 2022-10-06 12:45:00 Office Visit Rakan [facility] MEDICAL OFFICE BUILDING 1.2.840.114 350.1.13.10 4.2.7.2.686 [id number] [facility] 2022-10-06 12:00:00 2022-10-06 12:00:[address] [facility] [id number] [facility] 2022-10-01 00:00:00 2022-10-01 00:00:00 Orders Only Doctor Unassigned, Higginson [facility] 1.2.840.114 350.1.13.10 4.2.7.2.686 [id number] [facility] 2022-10-01 00:00:00 2022-10-01 00:00:00 Telephone Rakan [facility] MEDICAL OFFICE BUILDING 1.2.840.114 350.1.13.10 4.2.7.2.686 [id number] [facility] 2022-09-21 10:00:00 2022-09-21 10:15:00 Office Visit Felicitas Link [facility] 1..840.114 350.1.13.10 4.2.7.2.686 [id number] [facility] 2022-09-21 10:00:00 2022-09-21 10:00:00 Outpatient R FELICITAS LINK [facility] [id number] [facility] 2022-09-21 09:00:00 2022-09-21 09:45:00 Ancillary Visit Robert Gutiérrez 2, [employer] Marly Warren [facility] 1..840.114 350.1.13.10 4.2.7.2.686 [id number] [facility] 2022-08-18 00:00:00 2022-08-18 00:00:00 Outpatient GC_CPC_Walk InSchedul [facility] [id number] [facility] 2022-08-14 00:00:00 2022-08-14 00:00:00 [facility] [id number] [facility] 2022-08-14 00:00:00 2022-08-14 00:00:00 Artem Anderson, TESTBOARD OPERATOR: [address] [phone] , Ph. [facility] - GC_CPC_Need denita Office [id number] [facility] 2022-08-10 09:15:00 2022-08-10 09:30:00 Office Visit Felicitas Link [facility] ..840.114 350.1.13.10 4.2.7.2.686 [id number] [facility] 2022-08-10 09:15:00 2022-08-10 09:15:00 Outpatient R FELICITAS LINK [facility] [id number] [facility] 2022-08-10 00:00:00 2022-08-10 00:00:00 Telephone Felicitas Link [facility] AASHISH TORO 1.2.840.114 350.1.13.10 4.2.7.2.686 [id number] [facility] 2022-06-24 12:42:24 2022-06-24 23:59:00 Hospital Encounter Porsche Isbell [facility] 1.2.840.114 350.1.13.10 4.2.7.2.686 [id number] [facility] 2022-06-24 12:42:02 2022-06-24 23:59:00 Hospital Encounter Porsche Isbell [facility] 1.2.840.114 350.1.13.10 4.2.7.2.686 [id number] [facility] 2022-06-24 12:41:45 2022-06-24 12:41:45 Outpatient R PORSCHE ISBELL [facility] [id number] [facility] 2022-06-24 12:41:45 2022-06-24 12:41:45 Hospital Encounter Porsche Isbell [facility] 1.2.840.114 350.1.13.10 4.2.7.2.686 [id number] [facility] 2022-06-24 12:41:31 2022-06-24 12:41:31 Hospital Encounter Porsche Isbell [facility] 1.2.840.114 350.1.13.10 4.2.7.2.686 [id number] [facility] 2022-06-18 12:00:00 2022-06-18 13:13:41 Outpatient R SOSA BLEDSOE [facility] [id number] [facility] 2022-06-18 12:00:00 2022-06-18 13:13:41 Office Visit Sosa Bledsoe [facility] 1.2.840.114 350.1.13.10 4.2.7.2.686 [id number] [facility] 2022-04-29 00:00:00 2022-04-29 00:00:00 Letter (Out) Clinic, Neurology [facility] 1.2.840.114 350.1.13.10 4.2.7.2.686 [id number] [facility] 2022-03-12 00:00:00 2022-03-12 00:00:00 Orders Only Doctor Unassigned, Higginson [facility] 1.2.840.114 350.1.13.10 4.2.7.2.686 [id number] [facility] 2021-01-09 10:08:33 2021-01-09 23:59:00 Hospital Encounter Radiology [facility] 1.2.840.114 350.1.13.10 4.2.7.2.686 [id number] [facility] 2021-01-09 00:00:00 2021-01-09 00:00:00 Outpatient R RADIOLOGY [facility] [id number] [facility] 2021-01-09 00:00:00 2021-01-09 00:00:00 Orders Only Doctor Unassigned, Higginson [facility] 1.2.840.114 350.1.13.10 4.2.7.2.686 [id number] [facility] 2020-11-16 09:55:00 2020-11-16 09:55:00 Outpatient R WILLIAM LARSON [facility] [id number] [facility] 2020-11-01 09:30:00 2020-11-01 09:30:00 Outpatient R MOMO LUNDY [facility] [id number] [facility] 2020-10-26 20:20:00 2020-10-26 20:20:00 Outpatient [facility] [id number] [facility] 2020-10-26 11:03:24 2020-10-26 11:56:17 Urgent Care Provider, [facility] SrinivasaBecky [facility] Office [facility] 1.2.840.114 350.1.13.10 4.2.7.2.686 [id number] [facility] 2020-10-26 11:00:00 2020-10-26 11:00:00 Outpatient R [facility] [id number] [facility] 2020-10-05 19:15:00 2020-10-05 19:15:00 Outpatient R NIKKIE MOMO [facility] [id number] [facility] Results Test Description Test Time Test Comments Results Result Co [facility]ments [facility] [id number] 16:42:30Examination:BI SCREENING TOMOSYNTHESIS BILATERAL History:Patient is 50 year old and is seen for: ?Encounter for screening mammogram for breast cancer. Computer-aided detection (CAD) utilized. Comparisons : None available Findings:The breasts have scattered areas of fibroglandular density. There is no evidence of suspicious masses, calcifications, or other abnormal findings. Impression:No signs ofmalignancy. Recommendation:Annual mammographic follow-up - Bilateral BI-RADS Category: [facility]
--- NOTE | 2024-09-04 21:29 | RAD REPORT ---
Procedure: Chest Single View HISTORY: Cough COMPARISON: 2017 FINDINGS: The lungs appear clear of acute infiltrate. No significant pleural effusion noted. The heart is normal size. IMPRESSION: No acute abnormality is displayed.
[2024-09-04 21:38] LABS: Absolute Basophils 0.1 K/uL (0-0.5); Absolute Eosinophils 0.1 K/uL (0-0.5); Absolute Lymphocytes (CBC) 2.2 K/uL (0.7-4.9); Absolute Monocytes 0.4 K/uL (0.1-1.3); Absolute Neutrophil 4.5 K/uL (1.8-8.0); Basophils % 0.8 % (0-1.3); Eosinophils % 1.9 % (0-4.4); Hematocrit 37.6 % (36.0-45.0); Hemoglobin 12.6 g/dL (12.0-15.0); Lymphocytes % 30.2 % (15.3-44.8); MCH 32.8 pg (27.0-35.0); MCHC 33.5 g/dL (32.0-36.0); MPV 7.7 fL (7.6-11.3); Monocytes % 5.8 % (3.3-12.3); Neutrophils % 61.3 % (41.7-73.7); Nucleated Red Blood Cells % 0.2 % (0-0); Platelets 286 thou/uL (152-406); RBC Red Blood Cell Count 3.83 M/uL (3.86-4.86); Red Cell Distribution Width 13.1 % (12.1-15.2)
[2024-09-04 21:43] LABS: PT Prothrombin Time 13.7 SECONDS (9.4-12.5); Protime INR 1.31
[2024-09-04 21:59] LABS: ALT/SGPT 31 U/L (13-56); AST/SGOT 20 U/L (15-37); Albumin 3.7 g/dL (3.4-5.0); Albumin/Globulin Ratio 1.2 (1.1-1.8); Alkaline Phosphatase 83 U/L (45-117); Anion Gap 7.2 mEq/L (5.0-15.0); BUN Blood Urea Nitrogen 8 mg/dL (7-18); Bicarbonate 25 mEq/L (21-32); Bilirubin Total 0.5 mg/dL (0.2-1.0); Globulin 3.1 g/dL (2.3-3.5); Glomerular Filtration Rate 102 ml/min (=/>90); Glucose Level 103 mg/dL (74-106); Magnesium 2.3 mg/dL (1.6-2.4); NT PRO-BNP 49 pg/mL (<125); Potassium 3.2 mEq/L (3.5-5.1); Protein, Total 6.8 g/dL (6.4-8.2); Sodium Level 141 mEq/L (136-145); Troponin High Sensitivity 4.8 pg/mL (<58.9)
[2024-09-04 22:00] LABS: Bilirubin Direct < 0.2 mg/dL (0-0.2); Bilirubin Indirect, Calculated 0.3 mg/dL (0.2-0.8)
[2024-09-04] MEDS ORDERED: PROMETHAZINE 25 MG TABLET ONE (22:42)
[2024-09-04] MEDS ORDERED: MECLIZINE HCL 12.5 MG TAB ONE (22:42)
[2024-09-04] MEDS ORDERED: HYDROCODONE/APAP 5/325 MG TAB ONE (22:42)
--- NOTE | 2024-09-05 00:49 | RAD REPORT ---
EXAM DESCRIPTION: CT HEAD WITHOUT IV CONTRAST 09/05/2024 12:42 AM [facility] CLINICAL HISTORY: 54 years, Female, Tinnitus. COMPARISON: None. FINDINGS: Multiple transaxial tomograms of the brain were obtained from the base of the skull to the vertex wit hout contrast. An individualized dose optimization technique, Automated Exposure Control, was utilized for the perfo rmed procedure. Brain: Brain parenchyma as well as the kay-white matter differentiation demonstrate to be within nor mal limits. There is no evidence for acute intraparenchymal hemorrhage. There is no midline shifts and/or mass effect. No focal areas of hypodensities. Ventricles: Lateral ventricles and cisterns displace normal appearance. Vasculature: No visualized abnormalities in the arteries or dural venous sinuses. Scalp/skull: The calvarium demonstrate to be intact with no evidence for acute bony injuries. Sinuses: The visualized paranasal sinuses and mastoid air cells demonstrate to be clear. Orbits: No significant abnormalities in the visualized orbital structures. IMPRESSION: No acute intracranial hemorrhage. Unremarkable CT scan of the head without contrast. Electronically signed by: Saw Morales MD 09/05/2024 12:44 AM [facility] Due to temporary technical issues with the PACS/RACTIV reporting system, reports are being liza d by the in-house radiologist without review as a courtesy to ensure prompt reporting the interpreting radiologist is fully responsible for the content of the report. Transcribed Date/Time: 09/05/2024 12:49 AM
--- NOTE | 2024-09-05 01:25 | RAD REPORT ---
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 COMPARISON: XR Chest 09/05/[address] Abdomen pelvis 04/20/2024. PROCEDURE: Multiple transaxial tomograms of the thoracic and abdominal aorta were performed utilizing 3 mm sligh t thickness at 3 mm interval reconstruction, from the lung apices to the ischial tuberosities, before and after the administration of large bolus of IV contrast for complete opacification of the t horacic, abdominal aorta and iliac arteries. 2-D and 3-D multiplanar reformats, volume rendering technique and maximum intensity projection images were generated and reviewed. An individualized dose optimization technique, Automated Exposure Control, was utilized for the perfo rmed procedure. Findings: Thoracic aorta/great vessels: The thoracic aorta demonstrate to be within normal limits. No evidence for significant aneurysm and/o r dilatation. There is normal branching pattern of the great vessels with no evidence for significant proximal stenosis and/or occlusion Aorta/iliac arteries: The visualized abdominal aorta is patent without significant aneurysmal dilatation or evidence of dis section. No significant atherosclerotic calcifications. There is minimal atheromatous plaque involving the aortic bifurcation with slight decreased caliber a nd subsequent post stenotic dilatation bilateral common iliac arteries, this is located on axial image [id number] and maximum intensity projection images coronal view CT series #501 image 23/45 . The celiac trunk, superior mesenteric and inferior mesenteric artery demonstrate to be patent with no evidence for significant stenosis and/or occlusion. There is focal area of caliber narrowing within the mid/proximal aspect of the superior mesenteric artery corresponding to a less than 40% moises iber narrowing on CT series #105/208-110/208. There are single bilateral renal arteries with no significant abnormalities. Chest: Lower neck: Visualized thyroid gland and soft tissues are normal. No adenopathy. Lungs: The lung parenchyma demonstrate to be clear. Minimal compressive atelectatic changes No eviden ce of airspace or interstitial process. No significant pulmonary nodules and/or masses identified. No focal areas of consolidation. Airways: The trachea mainstem bronchus demonstrate to be unremarkable. Pleural: There are no pleural effusion. No evidence for pneumothorax. Hemidiaphragms are normally pos itioned. Mediastinum and lymph nodes: No significant mediastinal and/or hilar lymphadenopathy. The axillary re gions demonstrate to be clear. Heart: Borderline enlarged. No pericardial thickening or effusion. Coronary: No significant coronary artery calcifications. Pulmonary arteries: The central pulmonary arteries demonstrate to be within normal limits. No evidenc e for significant central filling defect to suggest pulmonary embolus. Osseous structures and chest wall: The thoracic spine demonstrate to be within normal limits. No evid ence for compression deformities and/or significant skeletal lesions. Abdomen and pelvis: Liver: The liver demonstrated presence of decreased attenuation corresponding to fatty infiltration. Gallbladder: The gallbladder demonstrate to be normal. Adrenal glands: The adrenal glands demonstrate to be normal. Pancreas: The pancreas demonstrate to be normal. Spleen: The spleen demonstrate to be within normal limits. Kidneys: The kidneys demonstrate normal uptake of contrast media. There is no evidence for nephroli thiasis and/or hydronephrosis. GI: Grossly the unopacified stomach, small bowel and large bowel demonstrate to be within normal limi ts. No evidence for bowel dilatation and/or free air. The appendix is normal. The left-sided colon/sigmoid colon demonstrates presence of minimal diverticulosis. : The urinary bladder demonstrate to be suboptimal distention with no gross abnormalities. Genitalia: The uterus demonstrate to be within normal limits. There are normal adnexal structures. Retroperitoneum: There is no retroperitoneal lymphadenopathy. There is no evidence for ascites and/or abnormal fluid collections. Bones: The bony structures demonstrate to be within normal limits. No evidence for compression deform ity and/or significant skeletal lesions. Soft tissues: There is a small umbilical hernia containing omentum. IMPRESSION: Focal area of caliber narrowing within the mid/proximal aspect of the superior mesenteric artery jacquie esponding to a less than 40% caliber narrowing. No evidence for significant central filling defect to suggest pulmonary embolus. No evidence for significant aneurysmal dilatation or dissection involving the thoracic or abdominal a nik. Minimal atheromatous plaque involving the aortic bifurcation with slight decreased caliber and subseq uent post stenotic dilatation bilateral common iliac arteries. Fatty infiltration of the liver. Small umbilical hernia containing omentum. Electronically signed by: Saw Morales MD 09/05/2024 01:20 AM [facility] Due to temporary technical issues with the PACS/SweetSlap reporting system, reports are being liza d by the in-house radiologist without review as a courtesy to ensure prompt reporting the interpreting radiologist is fully responsible for the content of the report. Transcribed Date/Time: 09/05/2024 1:24 AM
--- NOTE | 2024-09-05 01:57 | ER ---
Nurse's Notes [facility] Name: Jenni Ludwig Age: 54 yrs Sex: Female : 1970 Arrival Date: 09/04/2024 Time: 20:50 Bed 15 Private MD: Diagnosis: Noncardiac chest pain, Acute tinnitus Presentation: 09/04 20:57 Chief complaint: Patient states: ringing in left ear, left chest pain radiating to left bm8 arm X3 days on and off but constant beginning today. Coronavirus screen: Client denies travel out of the [place] in the last 14 days. At this time, the client does not indicate any symptoms associated with coronavirus-19. Ebola Screen: No symptoms or risks identified at this time. Initial Sepsis Screen: Does the patient meet any 2 criteria? No. Patient's initial sepsis screen is negative. Does the patient have a suspected source of infection? No. Patient's initial sepsis screen is negative. Risk Assessment: Do you want to hurt yourself or someone else? Patient reports no desire to harm self or others. Onset of symptoms is unknown. 20:57 Method Of Arrival: Ambulatory bm8 20:57 Acuity: SHAHEEN 3 bm8 Triage Assessment: 21:00 General: Appears in no apparent distress. uncomfortable, Behavior is calm, cooperative. bm8 Pain: Complains of pain in chest Pain radiates to left arm Pain currently is 8 out of 10 on a pain scale. Pain began 2-3 days ago. Is intermittent, episodic. EENT: No deficits noted. Reports ringing in left ear. Neuro: No deficits noted. Wooten Agitation-Sedation Scale (RASS): 0 - Alert and Calm Level of Consciousness is awake, alert, obeys commands, Oriented to person, place, time, situation. Cardiovascular: Reports chest pain, Denies shortness of breath, Capillary refill < 3 seconds Clubbing of nail beds is absent JVD is absent Patient's skin is warm and dry. Respiratory: No deficits noted. Airway is patent Respiratory effort is even, unlabored, Respiratory pattern is regular, symmetrical. GI: No deficits noted. No signs and/or symptoms were reported involving the gastrointestinal system. : No signs and/or symptoms were reported regarding the genitourinary system. Derm: No deficits noted. No signs and/or symptoms reported regarding the dermatologic system. Skin is intact, is healthy with good turgor, Skin is dry, Skin is normal, Skin temperature is warm. Musculoskeletal: No deficits noted. Circulation, motion, and sensation intact. Range of motion: intact in all extremities. Historical: - Allergies: 21:00 No Known Allergies; bm8 - Home Meds: 21:00 Eliquis 5 mg Oral tablet [Active]; bm8 - PMHx: 21:00 Blood clot in brain; GERD; High Cholesterol; Rheumatoid Arthritis; bm8 - PSHx: 21:00 None; bm8 - Immunization history:: Adult Immunizations up to date. - Infectious Disease History:: Denies. - Social history:: Smoking status: Patient denies any tobacco usage or history of. Patient/guardian denies using alcohol, street drugs. - Family history:: not pertinent. Screenin/18 02:06 [facility] ED Fall Risk Assessment (Adult) History of falling in the last 3 months, jb4 including since admission No falls in past 3 months (0 pts) Confusion or Disorientation No (0 pts) Intoxicated or Sedated No (0 pts) Impaired Gait No (0 pts) Mobility Assist Device Used No (0 pt) Altered Elimination No (0 pt) Score/Fall Risk Level 0 - 2 = Low Risk Oriented to surroundings, Maintained a safe environment. Abuse screen: Denies threats or abuse. Nutritional screening: No deficits noted. Tuberculosis screening: No symptoms or risk factors identified. Assessment: 09/04 23:15 Reassessment: Patient appears in no apparent distress at this time. Patient and/or jb4 family updated on plan of care and expected duration. Pain level reassessed. Patient is alert, oriented x 3, equal unlabored respirations, skin warm/dry/pink. Pt back from CT. 09/05 00:15 Reassessment: Patient appears in no apparent distress at this time. Patient and/or jb4 family updated on plan of care and expected duration. Pain level reassessed. Patient is alert, oriented x 3, equal unlabored respirations, skin warm/dry/pink. 01:15 Reassessment: Patient appears in no apparent distress at this time. Patient and/or jb4 family updated on plan of care and expected duration. Pain level reassessed. Patient is alert, oriented x 3, equal unlabored respirations, skin warm/dry/pink. 02:05 Reassessment: Patient appears in no apparent distress at this time. Patient and/or jb4 family updated on plan of care and expected duration. Pain level reassessed. Patient is alert, oriented x 3, equal unlabored respirations, skin warm/dry/pink. Patient states feeling better. Vital Signs: 09/04 20:57 BP 127 / 65; Pulse 65; Resp 16 S; Temp 97.6; Pulse Ox 100% on R/A; Weight 74.84 kg (R); bm8 Height 5 ft. 1 in. (R); Pain 8/10; 23:15 BP 108 / 54; Pulse 66; Resp 16; Pulse Ox 96% on R/A; jb4 09/05 00:30 BP 113 / 69; Pulse 64; Resp 16; Pulse Ox 94% on R/A; jb4 01:30 BP 131 / 77; Pulse 69; Resp 16; Pulse Ox 98% on R/A; jb4 09/04 20:57 Body Mass Index 31.18 (74.84 kg, 154.94 cm) 8 09/04 20:57 Pain Scale: Adult bm8 Laron Coma Score: 06:27 Eye Response: spontaneous(4). Motor Response: obeys commands(6). Verbal Response: sp4 oriented(5). Total: 15. NIH Stroke Scale Scores: 06:27 NIHSS Score: 0 sp4 ED Course: 09/04 20:53 Patient arrived in ED. mr 21:00 Triage completed. bm8 21:00 Arm band placed on left wrist. bm8 21:03 EKG done, by ED staff. bm8 21:05 Hemant Christine MD is Attending Physician. sp4 21:25 XRAY Chest (1 view) In Process Unspecified. EDMS 21:35 Inserted saline lock: 20 gauge in left antecubital area, using aseptic technique. Blood vk collected. Flushed with 10 mL NS. 21:35 Initial lab(s) drawn, by me, sent to lab. vk 21:35 Basic Metabolic Panel Sent. vk 21:35 CBC with Diff Sent. vk 21:35 LFT's Sent. vk 21:35 Magnesium Sent. vk 21:35 NT PRO-BNP Sent. vk 21:35 PT-INR Sent. vk 21:35 Troponin HS Sent. vk 23:03 CT Aorta for Dissection In Process Unspecified. EDMS 23:03 CT Head Brain wo Cont In Process Unspecified. EDMS 09/05 01:55 Migue Sam MD is Referral Physician. sp4 02:06 Patient has correct armband on for positive identification. Placed in gown. Bed in low jb4 position. Call light in reach. Side rails up X 1. Provided Education on: discharge instructions.. Client placed on continuous cardiac and pulse oximetry monitoring. NIBP monitoring applied. environmental monitoring specialist on. Pulse ox on. 02:06 No provider procedures requiring assistance completed. IV discontinued, intact, jb4 bleeding controlled, No redness/swelling at site. Pressure dressing applied. Patient maintains SpO2 saturation greater than 95% on room air. Administered Medications: 09/04 23:12 Drug: HYDROcodone-acetaminophen PO 5 mg-325 mg 2 tabs PO once Route: PO; jb4 09/05 01:31 Follow up: Response: No adverse reaction; Marked relief of symptoms jb4 09/04 23:12 Not Given (Patient Refused): [id number] mg PO once jb4 23:12 Drug: Promethazine PO 25 mg PO once Route: PO; jb4 09/05 01:31 Follow up: Response: No adverse reaction; Marked relief of symptoms jb4 Medication: 02:06 VIS not applicable for this client. jb4 Outcome: 01:56 Discharge ordered by . sp4 02:06 Discharged to home ambulatory, jb4 02:06 Condition: stable 02:06 Discharge instructions given to patient, Instructed on discharge instructions, follow up and referral plans. medication usage, Demonstrated understanding of instructions, follow-up care, medications, Prescriptions given X 2, 02:07 Patient left the ED. jb4 NIH Stroke Scale - NIH Stroke Score Date: 09/05/2024 Time: 06:27 Total Score = 0 10. Dysarthria (speech clarity - read or repeat words) - 0(Normal) 11. Extinction and Inattention (visual/tactile/auditory/spatial/personal) - 0(No abnormality) 1a. Level of Consciousness (LOC) - 0(Alert) 1b. Level of Consciousness (LOC) (Month \T\ Age) - 0(Both) 1c. LOC Commands (Open \T\ Closes Eyes/Assistant Professor Of Psychology) - 0(Both) 2. Best Gaze (Lateral Gaze Paresis) - 0(Normal) 3. Visual Field Loss - 0(No visual loss) 4. Facial Palsy - 0(Normal) 5a. Left Arm: Motor (10-second hold) - 0(No drift) 5b. Right Arm: Motor (10-second hold) - 0(No drift) 6a. Left Leg: Motor (5-second hold - always test supine) - 0(No drift) 6b. Right Leg: Motor (5-second hold - always test supine) - 0(No drift) 7. Limb Ataxia (finger/nose \T\ heel/arceo - test with eyes open) - 0(Absent) 8. Sensory Loss (pinprick arms/legs/face) - 0(Normal) 9. Best Language: Aphasia (description/naming/reading) - 0(No aphasia) Initials: sp4 Signatures: Dispatcher [employer] [facility] Porsche Castaneda, Reg Reg mr Hossein Arreaga, RN RN jb4 Hemant Christine MD MD sp4 Manasa Feng Brad, RN RN bm8
--- NOTE | 2024-09-05 01:57 | EDPHYS ---
Physician Documentation [facility] Name: Jenni Ludwig Age: 54 yrs Sex: Female : 1970 Arrival Date: 09/04/2024 Time: 20:50 Bed 15 Private MD: ED Physician Hemant Christine HPI: 09/04 21:05 This 54 yrs old Female presents to ER via Ambulatory with complaints of Chest sp4 Pain. 09/05 06:27 54 Algerian-speaking female presents with complaint of left-sided chest discomfort and sp4 tinnitus. Historical: - Allergies: 09/04 21:00 No Known Allergies; bm8 - Home Meds: 21:00 Eliquis 5 mg Oral tablet [Active]; bm8 - PMHx: 21:00 Blood clot in brain; GERD; High Cholesterol; Rheumatoid Arthritis; bm8 - PSHx: 21:00 None; bm8 - Immunization history:: Adult Immunizations up to date. - Infectious Disease History:: Denies. - Social history:: Smoking status: Patient denies any tobacco usage or history of. Patient/guardian denies using alcohol, street drugs. - Family history:: not pertinent. ROS: 09/05 06:27 Constitutional: Negative for fever, chills, and weight loss, positive left-sided chest sp4 pain positive tinnitus All other systems are negative, Exam: 06:27 Constitutional: This is a well developed, well nourished patient who is awake, alert, sp4 and in no acute distress. Head/Face: Normocephalic, atraumatic. Eyes: Pupils equal round and reactive to light, extra-ocular motions intact. Lids and lashes normal. Conjunctiva and sclera are not injected. Cornea within normal limits. Periorbital areas with no swelling, redness, or edema. ENT: Nares patent. No nasal discharge, no septal abnormalities noted. Tympanic membranes are normal and external auditory canals are clear. Oropharynx with no redness, swelling, or masses, exudates, or evidence of obstruction, uvula midline. Mucous membranes moist. Neck: Trachea midline, no thyromegaly or masses palpated, and no cervical lymphadenopathy. Supple, full range of motion without nuchal rigidity, or vertebral point tenderness. Chest/axilla: Normal chest wall appearance and motion. Nontender with no deformity. No lesions are appreciated. Cardiovascular: Regular rate and rhythm with a normal S1 and S2. No gallops, murmurs, or rubs. Normal PMI, no JVD. No pulse deficits. Respiratory: Lungs have equal breath sounds bilaterally, clear to auscultation and percussion. No rales, rhonchi or wheezes noted. No increased work of breathing, no retractions or nasal flaring. Abdomen/GI: Soft, with normal bowel sounds. No distension or tympany. No guarding or rebound. No evidence of tenderness throughout. Back: No spinal tenderness. No costovertebral tenderness. Skin: Warm, dry with normal turgor. Normal color with no rashes, no lesions, and no evidence of cellulitis. MS/ Extremity: Pulses equal, no cyanosis. Neurovascular intact. Full, normal range of motion. Neuro: Awake and alert, GCS 15, oriented to person, place, time, and situation. Cranial nerves II-XII grossly intact. Motor strength 5/5 in all extremities. Sensory grossly intact. Psych: Awake, alert, with orientation to person, place and time. Behavior, mood, and affect are within normal limits 06:27 ECG was reviewed by the Attending Physician. EKG at 2104 normal sinus rhythm rate 67 Vital Signs: 09/04 20:57 BP 127 / 65; Pulse 65; Resp 16 S; Temp 97.6; Pulse Ox 100% on R/A; Weight 74.84 kg (R); bm8 Height 5 ft. 1 in. (R); Pain 8/10; 23:15 BP 108 / 54; Pulse 66; Resp 16; Pulse Ox 96% on R/A; jb4 09/05 00:30 BP 113 / 69; Pulse 64; Resp 16; Pulse Ox 94% on R/A; jb4 01:30 BP 131 / 77; Pulse 69; Resp 16; Pulse Ox 98% on R/A; jb4 09/04 20:57 Body Mass Index 31.18 (74.84 kg, 154.94 cm) [facility] 09/04 20:57 Pain Scale: Adult [facility] NIH Stroke Scale Scores: 06:27 NIHSS Score: 0 sp4 Ethan Coma Score: 06:27 Eye Response: spontaneous(4). Motor Response: obeys commands(6). Verbal Response: sp4 oriented(5). Total: 15. MDM: 09/04 21:07 Medical Screening Exam initiated sp4 09/05 01:31 ED course: IMPRESSION: Focal area of caliber narrowing within the mid/proximal aspect sp4 of the superior mesenteric artery corresponding to a less than 40% caliber narrowing. No evidence for significant central filling defect to suggest pulmonary embolus. No evidence for significant aneurysmal dilatation or dissection involving the thoracic or abdominal aorta. Minimal atheromatous plaque involving the aortic bifurcation with slight decreased caliber and subsequent post stenotic dilatation bilateral common iliac arteries. Fatty infiltration of the liver. Small umbilical hernia containing omentum. Electronically signed by: Saw Morales MD 09/05/2024 01:20 AM CLINICAL SPECIALIST MEDICAL DEVICE . ED course: EXAM DESCRIPTION: CT HEAD WITHOUT IV CONTRAST 09/05/2024 12:42 AM CLINICAL SPECIALIST MEDICAL DEVICE CLINICAL HISTORY: 54 years, Female, Tinnitus. COMPARISON: None. FINDINGS: Multiple transaxial tomograms of the brain were obtained from the base of the skull to the vertex without contrast. An individualized dose optimization technique, Automated Exposure Control, was utilized for the performed procedure. Brain: Brain parenchyma as well as the kay-white matter differentiation demonstrate to be within normal limits. There is no evidence for acute intraparenchymal hemorrhage. There is no midline shifts and/or mass effect. No focal areas of hypodensities. Ventricles: Lateral ventricles and cisterns displace normal appearance. Vasculature: No visualized abnormalities in the arteries or dural venous sinuses. Scalp/skull: The calvarium demonstrate to be intact with no evidence for acute bony injuries. Sinuses: The visualized paranasal sinuses and mastoid air cells demonstrate to be clear. Orbits: No significant abnormalities in the visualized orbital structures. IMPRESSION: No acute intracranial hemorrhage. Unremarkable CT scan of the head without contrast. Electronically signed by: Saw Morales MD 09/05/2024 12:44 AM. 06:33 Differential diagnosis: acute pericarditis, anxiety, chest wall pain, congestive heart sp4 failure cholecystitis, Cholelithiasis costochondritis, esophagitis, gastritis. HEART Score: History: Slightly Suspicious (0), ECG: Normal (0), Age: > 45 and < 65 years (1), Risk Factors: 1 or 2 risk factors (1), Troponin: < or = 1 x Normal Limit (0), Total Score = 2. Data reviewed: vital signs, nurses notes, lab test result(s), EKG, radiologic studies, CT scan. ED course: Patient is stable for discharge home troponin x 2 is negative. 09/04 21:07 Order name: Basic Metabolic Panel; Complete Time: 22:25 sp4 09/04 21:07 Order name: CBC with Diff; Complete Time: 22:25 sp4 09/04 21:07 Order name: LFT's; Complete Time: 22:25 sp4 09/04 21:07 Order name: Magnesium; Complete Time: 22:25 sp4 09/04 21:07 Order name: NT PRO-BNP; Complete Time: 22:25 sp4 09/04 21:07 Order name: PT-INR; Complete Time: 22:25 sp4 09/04 21:07 Order name: Troponin HS; Complete Time: :25 sp4 09/05 00:51 Order name: Troponin High Sensitivity; Complete Time: 01:54 sp4 09/04 21:07 Order name: XRAY Chest (1 view); Complete Time: :25 4 09/04 22:25 Order name: CT Aorta for Dissection 4 09/04 22:26 Order name: CT Head Brain wo Cont 4 09/04 21:07 Order name: Cardiac monitoring; Complete Time: 23:12 sp4 09/04 21:07 Order name: EKG - Nurse/Tech; Complete Time: 21:35 sp4 09/04 21:07 Order name: IV Saline Lock; Complete Time: 21:35 sp4 09/04 21:07 Order name: Labs collected and sent; Complete Time: 21:35 sp4 09/04 21:07 Order name: O2 Per Protocol; Complete Time: 21:35 sp4 09/04 21:07 Order name: O2 Sat Monitoring; Complete Time: 23:12 sp4 EC/17 21:04 Rate is 67 beats/min. Rhythm is regular, Normal Sinus Rhythm. QRS [place] is Normal. [place] sp4 interval is normal. QRS interval is normal. QT interval is normal. No Q waves. T waves are Normal. No ST changes noted. Clinical impression: No evidence of ischemia. Interpreted by me. Reviewed by me. Administered Medications: 23:12 Drug: HYDROcodone-acetaminophen PO 5 mg-325 mg 2 tabs PO once Route: PO; jb4 09/05 01:31 Follow up: Response: No adverse reaction; Marked relief of symptoms [facility] 09/04 23:12 Not Given (Patient Refused): [id number] mg PO once [facility] 23:12 Drug: Promethazine PO 25 mg PO once Route: PO; [facility] 09/05 01:31 Follow up: Response: No adverse reaction; Marked relief of symptoms jb4 Disposition Summary: 09/05/24 01:56 Discharge Ordered Problem: new sp4 Symptoms: have improved sp4 Condition: Stable sp4 Diagnosis - Noncardiac chest pain, Acute tinnitus sp4 Followup: sp4 - With: Migue Sam MD - When: 7 - 10 days - Reason: Recheck today's complaints Discharge Instructions: - Discharge Summary Sheet sp4 - Gastroesophageal Reflux Disease, Adult, [id number] sp4 Prescriptions: - Tramadol 50 mg Oral tablet - take 1 tablet ORAL route every 8 hours as needed; 20 tablet; Refills: 0, sp4 Product Selection Permitted - promethazine 25 mg Oral tablet - take 1 tablet ORAL route every 6 hours As needed PRN nausea; 30 tablet; sp4 Refills: 0, Product Selection Permitted NIH Stroke Scale - NIH Stroke Score Date: 09/05/2024 Time: 06:27 Total Score = 0 10. Dysarthria (speech clarity - read or repeat words) - 0(Normal) 11. Extinction and Inattention (visual/tactile/auditory/spatial/personal) - 0(No abnormality) 1a. Level of Consciousness (LOC) - 0(Alert) 1b. Level of Consciousness (LOC) (Month \T\ Age) - 0(Both) 1c. LOC Commands (Open \T\ Closes Eyes/Jewelry Dipper) - 0(Both) 2. Best Gaze (Lateral Gaze Paresis) - 0(Normal) 3. Visual Field Loss - 0(No visual loss) 4. Facial Palsy - 0(Normal) 5a. Left Arm: Motor (10-second hold) - 0(No drift) 5b. Right Arm: Motor (10-second hold) - 0(No drift) 6a. Left Leg: Motor (5-second hold - always test supine) - 0(No drift) 6b. Right Leg: Motor (5-second hold - always test supine) - 0(No drift) 7. Limb Ataxia (finger/nose \T\ heel/arceo - test with eyes open) - 0(Absent) 8. Sensory Loss (pinprick arms/legs/face) - 0(Normal) 9. Best Language: Aphasia (description/naming/reading) - 0(No aphasia) Initials: sp4 Signatures: Dispatcher [employer] EDHossein Del Rio, RN RN jb4 Hemant Christine MD MD sp4 Arian Schroeder RN RN bm8 Corrections: (The following items were deleted from the chart) 09/04 21:07 21:07 BASIC METABOLIC PANEL+C.LAB.BRZ ordered. EDMS EDMS 21: 21:07 CBC+H.LAB.BRZ ordered. EDMS EDMS 21: 21:07 HEPATIC FUNCTION+C.LAB.BRZ ordered. EDMS EDMS 21: 21:07 MAGNESIUM+C.LAB.BRZ ordered. EDMS EDMS 21:07 21:07 PROBNP+C.LAB.BRZ ordered. EDMS EDMS 21:07 21:07 PROTIME (+INR)+COAG.LAB.BRZ ordered. EDMS EDMS 21:07 21:07 Troponin High Sensitivity+C.LAB.BRZ ordered. EDMS EDMS 21:07 21:07 Chest Single View+RAD.RAD.BRZ ordered. EDMS EDMS
[2024-09-05 05:09] VITALS: TEMP 97.6
[2024-09-05 05:13] VITALS: BP 131/77; O2SAT 98
== END 2024-09-05 02:07 | disposition home or self-care (01) ==
LOC: ER 20:50
DX: R07.89 Other chest pain (principal); H93.19 Tinnitus, unspecified ear; Z86.718 Personal history of other venous thrombosis and embolism; Z79.01 Long term (current) use of anticoagulants
CPT/HCPCS: 85025; 80048; 36415; 83735; 85610; 80076; 84484 ×2; 83880; 70450; 71275; 74175; 71045; Q9967; Q0169; J8597; 93005